=== PATIENT | male | born 1975 | race Caucasian/White ===

== ENCOUNTER 2017-01-29 11:24 | Emergency (ER) | payer SELFPAY ==
[~2017-01-29] VITALS: Ht 165.1 cm; Wt 126.6 kg
[2017-01-29 11:42] VITALS: BP 173/96; PULSE 89; RESP 16; TEMP 98.3; O2SAT 95
[2017-01-29] MEDS ORDERED: METF500T PO (11:42)
[2017-01-29] MEDS ORDERED: BACT800T5 PO (12:40)
[2017-01-29] MEDS ORDERED: NORC5TAB PO (12:40)
[2017-01-29] MEDS ORDERED: CLIN1CAP5 PO (12:40)
--- NOTE | 2017-01-29 12:41 | PD ---
HPI Chief Complaint: Lump, Cyst, Hernia Time Seen by Provider: 11:37 Travel History International Travel<30 days: No Contact w/Intl Traveler<30days: No Traveled to known affect area: No History of Present Illness HPI 41-year-old male complains of pain and redness swelling around the umbilicus for the past 2 days. Patient denies any injury to the area. Patient denies any fever chills. Patient denied nausea vomiting diarrhea. Patient states the pain is sharp stabbing pain localized around the umbilicus area. Patient denies any pain radiation. On a scale of 1-10 the pain is a 10. PFSH Past Medical History Diabetes: Yes (METFORMIN) Patient Takes Glucophage: Yes Influenza Vaccination: No Past Surgical History Surgical History: No Previous Surgery Social History Alcohol Use: No Tobacco Use: Yes (1 PPD) Substance Use: No Allergies-Medications (Allergen,Severity, Reaction): Coded Allergies: No Known Allergies (Unverified , 01/29/17) Reported Meds & Prescriptions Reported Meds & Active Scripts Active Reported Metformin (Metformin HCl) 500 Mg Tab 250 Mg PO BIDPC With meals Review of Systems General / Constitutional: No: Fever Eyes: No: Visual changes HENT: No: Headaches Cardiovascular: No: Chest Pain or Discomfort Respiratory: No: Shortness of Breath Gastrointestinal: Positive: Abdominal Pain Genitourinary: No: Dysuria Musculoskeletal: No: Pain Skin: No Rash Neurologic: No: Weakness Psychiatric: No: Depression Endocrine: No: Polydipsia Hematologic/Lymphatic: No: Easy Bruising Physical Exam Narrative GENERAL: Well-nourished, well-developed patient. SKIN: Focused skin assessment warm/dry. HEAD: Normocephalic. EYES: No scleral icterus. No injection or drainage. NECK: Supple, trachea midline. No JVD or lymphadenopathy. CARDIOVASCULAR: Regular rate and rhythm without murmurs, gallops, or rubs. RESPIRATORY: Breath sounds equal bilaterally. No accessory muscle use. GASTROINTESTINAL: Abdomen soft, non-tender, nondistended. MUSCULOSKELETAL: No cyanosis, or edema. BACK: Nontender without obvious deformity. No CVA tenderness. Patient has an area redness swelling tenderness umbilicus area. No induration. No discharge. Data Data Last Documented VS Vital Signs Date Time Temp Pulse Resp B/P Pulse Ox O2 Delivery O2 Flow Rate FiO2 01/29/17 11:42 98.3 89 16 173/[address] Abd/Pel W/O Iv Contrast (01/29/17 11:40) Clindamycin Inj (Cleocin Inj) (01/29/17 12:45) MDM Medical Decision Making Medical Screen Exam Complete: Yes Emergency Medical Condition: Yes Differential Diagnosis Differential diagnosis including cellulitis, abscess, hernia Narrative Course 41-year-old male with redness swelling tenderness umbilical area of the abdominal wall. Clindamycin 600 mg IM given. Diagnosis Primary Impression: Cellulitis Qualified Code: L03.316 - Cellulitis of umbilicus Patient Instructions: General Instructions Additional Instructions: Take medication as directed. Moist compress to the area. Return in 2 days for recheck. Med/Other Pt SpecificInfo: Prescription(s) given Scripts Hydrocodone-Acetaminophen ([place])5-325 mg Tab1 Tab PO Q6H PRN (PAIN) #20 TAB Prov:Robert Romo MD 01/29/17 Clindamycin 150 Mg Cap2 Tab PO Q6H #80 CAP Prov:Robert Romo MD 01/29/17 Sulfamethoxazole-Trimethoprim (Bactrim DS)800-160 Mg Tab1 Tab PO BID #20 TAB Prov:Robert Romo MD 01/29/17 Disposition: 01 DISCHARGE HOME Condition: Stable Robert Romo MD Jan 29, 2017 12:40
[2017-01-29] MEDS ORDERED: CLINDAMYCIN PHOS 600 MG/4 ML VIAL IM ONE (12:45)
--- NOTE | 2017-01-29 12:45 | RADRPT ---
EXAM DATE/TIME: 01/29/2017 11:50 [facility] COMPARISON: No previous studies available for comparison. INDICATIONS : Periumbilical pain and redness. Evaluate for abscess vs hernia. ORAL CONTRAST: No oral contrast ingested. RADIATION DOSE: 22.24 CTDIvol (mGy) MEDICAL HISTORY : Diabetes mellitus type 2. SURGICAL HISTORY : None. ENCOUNTER: Initial ACUITY: 2 days PAIN SCALE: 8/10 LOCATION: Umbilical TECHNIQUE: Volumetric scanning of the abdomen and pelvis was performed. Using automated exposure control and ad justment of the mA and/or kV according to patient size, radiation dose was kept as low as reasonably achievable to obtain optimal diagnostic quality images. DICOM format image data is available electro nically for review and comparison. FINDINGS: LOWER LUNGS: The visualized lower lungs are clear. LIVER: Homogeneous density without lesion. There is no dilation of the biliary tree. No calcified gall[place] es. SPLEEN: Normal size without lesion. PANCREAS: Within normal limits. KIDNEYS: Normal in size and shape. There is no mass, stone, or hydronephrosis. ADRENAL GLANDS: Right adrenal gland is normal. No normal left adrenal gland is visualized. In the general area of the left adrenal gland there is a partially calcified 2.5 cm nodule. VASCULAR: There is no aortic aneurysm. BOWEL/MESENTERY: The stomach, small bowel, and colon demonstrate no acute abnormality. There is no free intraperitone al air or fluid. ABDOMINAL WALL: There is subcutaneous inflammatory change and skin thickening surrounding the umbilicus. No hernia or fluid collection is present. RETROPERITONEUM: There is no lymphadenopathy. BLADDER: No wall thickening or mass. REPRODUCTIVE: Within normal limits. INGUINAL: There is no lymphadenopathy or hernia. MUSCULOSKELETAL: Within normal limits for patient age. CONCLUSION: 1. Inflammatory changes and skin thickening surrounding the umbilicus without hernia or drainable flu id collection. Imaging findings are characteristic of a cellulitis. 2. No normal left adrenal gland is visualized. There is a 2.5 cm partially calcified nodule in this l ocation. Etiology is uncertain. Suggest correlating with any prior imaging studies. If none are avail able consider 6 month followup to confirm stability. Cooper Mcmanus MD on January 29, 2017 at 12:38 Board Certified Radiologist. This report was verified electronically.
[2017-01-29 13:03] VITALS: BP 151/81; PULSE 80; RESP 16; O2SAT 97
== END 2017-01-29 13:27 | disposition home or self-care (01) ==
LOC: PHED 11:24
DX: L03.316 Cellulitis of umbilicus (principal)
CPT/HCPCS: 74176; 96372